=== PATIENT | female | born 1980 | race Caucasian/White ===

== ENCOUNTER 2020-09-23 21:49 | Emergency (ER) | payer SELFPAY ==
[~2020-09-23] VITALS: Ht 152.4 cm; Wt 75.0 kg
[2020-09-23 21:53] VITALS: BP 144/88
[2020-09-23] MEDS ORDERED: MAGNESIUM/ALUMINUM HYDROXIDE/SIMETHICONE 30ML UDC PO STA (22:31)
[2020-09-23] MEDS ORDERED: ONDANSETRON 4MG ODT PO STA (22:31)
[2020-09-23 23:01] LABS: CLARITY URINE CLEAR (CLEAR); COLOR URINE YELLOW (YELLOW); KETONES URINE TRACE (NEGATIVE); LEUKOCYTE ESTERASE URINE 1+ (NEGATIVE); NITRITE URINE NEGATIVE (NEGATIVE); OCCULT BLOOD URINE 1+ (NEGATIVE); PH URINE 5.5 (4.5-8.0); PROTEIN URINE TRACE (NEGATIVE); SPECIFIC GRAVITY URINE 1.029 (1.005-1.030)
[2020-09-23 23:50] LABS: BASOPHILS % 0.3 % (0.0-2.0); CHLORIDE 112 mEq/L (98-107); HEMATOCRIT. 32.3 % (36.0-48.0); HEMOGLOBIN. 11.1 g/dL (12.0-16.0); LYMPHOCYTES % 14.4 % (20.0-50.0); MEAN CORPUSCULAR HEMOGLOBIN 28.1 pg (28.0-32.0); MEAN CORPUSCULAR VOLUME 81.8 fL (81.0-99.0); MEAN PLATELET VOLUME 9.4 fl (7.4-10.4); MONOCYTES % 7.4 % (2.0-8.0); NEUTROPHILS % 76.9 % (40.0-76.0); PLATELET 268 x1000/uL (130-400); RED BLOOD CELL COUNT 3.95 mill/uL (4.2-5.4); RED CELL DISTRIBUTION WIDTH 13.8 % (11.6-14.6)
== END 2020-09-24 00:44 | disposition home or self-care (01) ==
LOC: ER 21:49
DX: K29.70 Gastritis, unspecified, without bleeding (principal); N39.0 Urinary tract infection, site not specified; K76.0 Fatty (change of) liver, not elsewhere classified; R74.01 Elevation of levels of liver transaminase levels
CPT/HCPCS: 36415; 76700; 80053; 81003; 83690; 84484; 85025; 93005; 99285; Q0162